=== PATIENT | female | born 1975 | race Caucasian/White ===

== ENCOUNTER → 2018-01-14 | Outpatient (CLI) | payer BC ==
--- NOTE | 2018-01-14 16:51 | DIAGNOSTIC IMAGING REPORT ---
PELVIC COMPLETE NON OB CLINICAL HISTORY: CHRONIC PELVIC PAIN, ENDOMETRIOSIS COMPARISON STUDY: None FINDINGS: The uterus measured prior hysterectomy. The endometrial stripe measured . The right ovary measured 3.1 cm. 2.5 cm cyst.. The left ovary measured prior surgical removal. There is no ultrasonographic evidence of ovarian torsion. It should be noted that ovarian torsion can be present with normal Doppler ultrasonographic findings. There was no evidence of pathologic free pelvic fluid. IMPRESSION: 1. Operative changes consistent with a prior hysterectomy and left ovarian removal. 2. 2.5 cm right ovarian cyst. 3. No evidence for abnormal mass or collection. The above report was generated using voice recognition software. It may contain grammatical, syntax or spelling errors. Electronically signed by: Zacarias Marc M.D. 01/14/2018 4:50 PM Dictated Date/Time: 01/14/2018 4:48 PM
== END | disposition home or self-care (01) ==
LOC: C.ULTR 15:37
PROVIDERS: ATTEND Obstetrics & Gynecology Gynecology
DX: N80.9 Endometriosis, unspecified (principal); N83.201 Unspecified ovarian cyst, right side; Z90.710 Acquired absence of both cervix and uterus; Z90.721 Acquired absence of ovaries, unilateral